=== PATIENT | female | born 1945 | race Caucasian/White ===

== ENCOUNTER 2016-09-06 17:40 | Emergency (ER) | payer MEDICARE, BC ==
[2016-09-06 18:14] VITALS: BP 153/97
--- NOTE | 2016-09-06 19:25 | ERNOTE ---
ENT HPI Date of Service: 09/06/16 Presenting Symptoms: eye pain Time Seen by Provider: 09/06/16 18:58 Source: patient, RN notes reviewed Exam Limitations: no limitations - Immun/Allergies/Home Medications Immunizations: IMMUNIZATION HX Immunizations Up to Date Yes History of Influenza Vaccine Yes Hx Pneumococcal Vaccination Yes Allergies/Adverse Reactions: Allergies Allergy/AdvReac Type Severity Reaction Status Date / Time No Known Allergies Allergy Verified 12/27/15 16:53 Home Medications: HOME MEDICATIONS Albuterol Sulfate [Ventolin Hfa] 1 - 2 inh IH Q4H PRN 01/16/13 [Last Taken Unknown] Amitriptyline HCl [Amitripytyline (Elavil)] 50 mg PO HS 01/16/13 [Last Taken Unknown] Atenolol [Tenormin] 50 mg PO DAILY 01/16/13 [Last Taken Unknown] Diclofenac Sodium [Diclofenac (Voltaren)] 50 mg PO BID 01/16/13 [Last Taken Unknown] Levothyroxine Sodium [Synthroid] 225 mcg PO DAILY 01/16/13 [Last Taken Unknown] Misoprostol [Cytotec] 200 mcg PO BID 01/16/13 [Last Taken Unknown] Zolpidem Tartrate [Ambien] 10 mg PO HS PRN 01/16/13 [Last Taken Unknown] traMADol HCL [Ultram] 50 mg PO BID 01/16/13 [Last Taken Unknown] - History of Present Illness Narrative: 71 y/o female brought to the ED by a relative for a sudden onset of right eye pain, blurred vision and subconjunctival bleeding that occurred about 2 hours ago. She was getting ready to go out and was putting on her wig at the time. She reports having a brief total vision loss in the right eye initially, but it has improved, although is still blurry. She has been seeing opthalmology at [facility] for a retina problem and possibly will be having surgery. She does not know the exact condition. Her vision is chronically poor in the right eye, but she states that this is worse than her normal. Date (Duration): 09/06/16 Time (Timing): 17:30 ENT Location: Present: eye (R) Prearrival Treatment: Present: no prearrival treatment Prior Treament: Denies: recently seen, similar symptoms before Review of Systems - Review of Systems Constitutional: Absent: recent illness, fever, chills EYE: Present: eye pain, blurred vision, vision changes. Absent: tearing ENT: Absent: nose congestion, sore throat Respiratory: Present: no symptoms reported Cardiology: Present: no symptoms reported Gastrointestinal/Abdominal: Present: no symptoms reported Genitourinary: Present: no symptoms reported Musculoskeletal: Present: no symptoms reported Skin: Absent: rash, lesions Neurological: Absent: headache, dizziness/light-headedness, weakness, numbness, tingling Endocrine: Present: no symptoms reported Hematologic/Lymphatic: Absent: easy bruising, easy bleeding Psych: Present: no symptoms reported - Patient's Past Medical History Patient History - Medical: Fibromyalgia, Hypothyroidism, Osteoarthritis Patient History - Cardiac/Respiratory: Asthma, Hypertension, Hyperlipidemia Patient History - Cancer: No Hx of Cancer Patient History - Surgical Procedures: Appendectomy, Cholecystectomy, Hysterectomy, Total Knee Replacement Patient History - Other: None - Social History Living Situations: alone Abuse History: No History of abuse Psych History: No pertinent hx Smoking Status: Never smoker Alcohol Use: none Drug Use: none - Immunizations Immunizations Up to Date: Yes Hx Pneumococcal Vaccination: Yes History of Influenza Vaccine: Yes Physical Exam - Physical Exam General Appearance: Present: wd/wn, alert, anxious Eye Exam: Normal inspection: left, PERRL: bilateral, EOMI: bilateral, Photophobia: right, Other: right - severe subconjunctival hemorrhage Respiratory: Present: no respiratory distress, no accessory muscle use Neurological Exam: Present: alert, oriented, normal mood/affect, no motor/ sensory deficits Skin Exam: Present: normal color, warm/dry ED Progress - Vital Signs Patient's Vital Signs:: I have reviewed the patient's vital signs. Vital Signs: Vital Signs 09/06/16 18:05 Temperature 36.8 C Pulse Rate 58 L Respiratory 18 Rate Blood Pressure 153/97 O2 Sat by Pulse 98 Oximetry - Progress/Reassessment Chief Complaint: Eye Injury/Trauma Progress:: Unchanged Plan - Plan Plan: Dr. Delatorre contacted regarding patient's symptoms and the uncertainty of what exactly her underlying eye condition is, He agreed that symptoms are likely d/t subconjunctival hemorrhage. Recommended artificial tears every 2 hours and to see him in the office tomorrow morning. Departure Clinical Impression: Subconjunctival hemorrhage of right eye - Departure Disposition: Home Follow Up Needed Condition: Stable Instructions: Subconjunctival Hemorrhage Additional Instructions: Use artificial tears (lubricating eye drops) every 2 hours Cold compresses as needed See Dr. Delatorre in his [place] office tomorrow morning at 9 Referrals: Donny Delatorre MD [Staff Physician] - 09/07/16 9:00 am
--- OUTSIDE RECORDS SUMMARY | 2016-09-06 19:26 | XMS REPORT | Continuity of Care Document ---
:1945 Author Organization [facility] ([facility]) Address [address] [place] [address] Phone [phone] Care Team Providers Name Role Phone Olamide Snyder Primary Care Provider [phone] Source Comments This disclosure is being made pursuant to the Care Everywhere program, applicable federal and state laws, and may not contain all informaitonavailable regarding this patient.[facility] ([facility]) Active Allergies and Adverse Reactions No Known Allergies Current Medications Prescription Sig. Disp. Refills Start Date End Date Status Calcium-Cholecalcife take 1 Tab by mouth Active rol, D3, (CALCIUM daily. 600 + D) 600-125 mg-unit Tab cholecalciferol take 1,000 Units by Active (VITAMIN D3) 1,000 mouth daily. unit Tab Chromium Picolinate take 1 Cap by mouth Active 200 mcg Cap daily. OMEGA-3 FATTY ACIDS take 1 Cap by mouth Active (OMEGA-3 PO) daily. MULTIVITAMINS,THERAP take 1 Tab by mouth Active EUTIC (THERAPEUTIC daily. MULTIVITAMIN PO) ALBUTEROL INH use 2 Puffs by Active inhalation as needed. amitriptyline Take 1 Tab by mouth 30 Tab 5 01/11/2010 Active (ELAVIL) 50 mg at bedtime as tablet needed for Sleep. Indications: Fibromyalgia traMADol (ULTRAM) 50 Take 1 Tab by mouth 60 Tab 5 01/11/2010 Active mg tablet 2 times daily as needed. Indications: Fibromyalgia zolpiDEM 10 mg Take 10 mg by mouth 2 05/28/2016 Active tablet at bedtime as needed. miSOPROStol 200 mcg Take 200 mcg by 1 05/28/2016 Active tablet mouth 2 times daily with meals. levothyroxine 150 take 1 tablet (150 1 07/03/2016 Active mcg tablet mcg) by oral route once daily for 90 days diclofenac 50 mg EC Take 50 mg by mouth 1 05/28/2016 Active tablet 2 times daily with meals. atenolol 50 mg Take 50 mg by mouth 1 05/28/2016 Active tablet daily. Ascorbic Acid 1,000 take 1 Tab by mouth 08/08/19 Discontinued mg Tab daily. 17 MTJXIJP-FBECNCCFU-PK take 1 Tab by mouth 08/08/19 Discontinued NC PO daily. 17 GLUCOSAMINE take 1 Tab by mouth 08/08/19 Discontinued HCL/CHONDR AHUJA A NA daily. 17 (GLUCOSAMINE-CHONDRO ITIN) 250-200 mg Tab levothyroxine take 100 mcg by 08/08/19 Discontinued (LEVOTHYROXINE) 100 mouth daily. 17 mcg tablet levothyroxine take 125 mcg by 08/08/19 Discontinued (LEVOTHYROXINE) 125 mouth daily. 17 mcg tablet VITAMIN B COMPLEX PO take 1 Cap by mouth 08/08/19 Discontinued daily. 17 Potassium 99 mg Tab take 1 Tab by mouth 08/08/19 Discontinued daily. 17 vitamin E 100 unit take 200 Units by 08/08/19 Discontinued cap mouth daily. 17 celecoxib (CELEBREX) Take 1 Cap by mouth 60 Cap 5 01/11/2010 08/08/19 Discontinued 100 mg capsule 2 times daily after 17 meals as needed. Indications: osteoarthritis and fibromyalgia Active Problems Problem Noted Date Epiretinal membrane (ERM) of right eye 08/07/2016 Carpal tunnel syndrome 03/19/2008 Pain in limb 03/19/2008 Unspecified hypothyroidism 04/24/2004 Most Recent Encounters Date Type Specialty Providers Description 08/08/2016 Office Visit Ophthalmology - Chief Comp: Patient Specialty Reported Reason For Visit 08/08/2016 Office Visit Ophthalmology - Obey Olson MD Dx: Epiretinal Specialty membrane (ERM) of right eye (Primary Dx) Immunizations Name Dates Previously Given Next Due Influenza, unspecified 05/04/2009,05/18/2008,05/06/2007,04/21/2006 Pneumococcal, unspecified 07/22/2002 Social History Tobacco Use Types Packs/Day Years Used Date Never Smoker Alcohol Use Drinks/Week oz/Week Comments No Last Filed Vital Signs Vital Sign Reading Time Taken Blood Pressure 147/87 01/11/2010 11:25 AM CDT Pulse 69 01/11/2010 11:25 AM CDT Temperature 36.8 C (98.2 F) 01/11/2010 11:25 AM CDT Respiratory Rate - - Height 1.77 m (5' 9.68") 03/12/2001 8:30 AM CDT Weight 106.1 kg (233 lb 14.5 oz) 01/11/2010 11:25 AM CDT Body Mass Index 33.87 01/11/2010 11:25 AM CDT Oxygen Saturation - - Plan of Care Date Type Specialty Providers Description 11/14/2016 Appointment Ophthalmology - Obey Olson MD Chief Comp: Patient Specialty [address] [place] [address] Visit [phone] (Fax) Health Maintenance Due Date Last Done Comments HCV Screening 1945 Hepatitis B Vaccine (1 of 3 1945 - Primary Series) Tdap Vaccine 1957 Lipid Disorder Screening 1964 Td Vaccine 1964 Mammogram 1986 Colonoscopy 08/26/1996 Zoster Vaccine 2006 Osteoporosis Screening (DXA 2011 Bone Density) Pneumococcal Vaccine (1 of 2 2011 - PCV13) Influenza Vaccine: Seasonal 02/20/2016 05/04/2009, Additional history exists (#1) 05/18/2008, 05/06/2007 Results from Last 3 Months OCT MACULA (08/08/2016 9:46 AM) Component Value Range EYE - OCT RIGHT CENTRAL MACULAR THICKNESS [phone] [facility] EYE - OCT LEFT CENTRAL MACULAR THICKNESS [phone] [facility] Narrative Spectralis ocular coherence tomography macula both eyes Right eye: taut epiretinal membrane with partial thickness lamellar hole and intraretinal cysts Left eye: moderate epiretinal membrane with disruption of the foveal architecture without intraretinal cysts
== END 2016-09-06 19:48 | disposition home or self-care (01) ==
LOC: ER 17:40
DX: H11.31 Conjunctival hemorrhage, right eye (principal); E03.9 Hypothyroidism, unspecified; M19.90 Unspecified osteoarthritis, unspecified site; I10 Essential (primary) hypertension

== ENCOUNTER 2017-07-17 14:44 | Emergency (ER) | payer MEDICARE, BC ==
[2017-07-17 15:41] LABS: Hemoglobin 11.8 gm/dL (12.5-16.0); Mean Corpuscular Hemoglobin 28.9 pg (27-31); Mean Corpuscular Hgb Conc 32.8 g/dl (32-36); Mean Platelet Volume 10.2 fl (6.0-9.5); Neutrophil # 2.5 K/mm3 (1.3-6.0); Platelet Count 243 K/mm3 (150-450); Red Blood Count 4.09 M/mm3 (4.2-5.4); White Blood Count 4.6 K/mm3 (4.0-10.5)
[2017-07-17 15:59] LABS: ALT 43 U/L (19-67); AST 25 U/L (0-48); Alkaline Phosphatase * 157 U/L (50-170); Anion Gap 10.5 mmol/L (6.8-13.8); BUN/Creatinine Ratio 13.3 (9.0-21.6); Bilirubin, Total 0.4 mg/dL (0.0-1.1); Blood Urea Nitrogen 13 mg/dL (3-23); Ca. Corrected For Albumin 9.8 mg/dL (8.4-10.2); Calcium * 10.1 mg/dL (7.9-10.9); Carbon Dioxide 30.1 mmol/L (24-32.6); Chloride 101 mmol/L (97-106); Glucose * 111 mg/dL (70-110); Potassium 4.6 mmol/L (3.4-4.6); Sodium 137 mmol/L (132-142); Total Protein 7.6 gm/dL (6.2-8.2)
[2017-07-17 16:09] LABS: Urine Bilirubin Negative (NEGATIVE); Urine Blood Negative /ul (NEGATIVE); Urine Ketone Negative (NEGATIVE); Urine Nitrite Negative (NEGATIVE); Urine Protein Negative (NEGATIVE); Urine Specific Gravity <=1.005 SP.GR. (1.005-1.010); Urine Urobilinogen Normal (NORMAL)
[2017-07-17 16:20] LABS: Urine Appearance Clear; Urine Bacteria None Seen; Urine Color Yellow; Urine RBC None Seen /hpf (0-5); Urine WBC None Seen /hpf (0-5)
[2017-07-17] MEDS ORDERED: KETOROLAC TROMETHAMINE 30 MG/ML VIAL IM ONE (16:20)
--- NOTE | 2017-07-17 16:26 | ERNOTE ---
Lower Extremity HPI - Narrative Date of Service: 07/17/17 - General Lower Extremities Pain: hip: right - sacroiliac mild disfunction Time Seen by Provider: 07/17/17 15:22 Source: patient Exam Limitations: physical impairment, other - difficulty walking due to pain - Immun/Allergies/Home Medications Immunizations: IMMUNIZATION HX Immunizations Up to Date Yes History of Influenza Vaccine Yes Hx Pneumococcal Vaccination Yes Allergies/Adverse Reactions: Allergies Allergy/AdvReac Type Severity Reaction Status Date / Time No Known Allergies Allergy Verified 07/17/17 14:48 Home Medications: HOME MEDICATIONS Albuterol Sulfate [Ventolin Hfa] 1 - 2 inh IH Q4H PRN 01/16/13 [Last Taken 09/26] Amitriptyline HCl [Amitripytyline (Elavil)] 50 mg PO HS 01/16/13 [Last Taken ] Atenolol [Tenormin] 50 mg PO DAILY 01/16/13 [Last Taken 10/10/16] Diclofenac Sodium [Diclofenac (Voltaren)] 50 mg PO BID 01/16/13 [Last Taken ] Levothyroxine Sodium [Synthroid] 200 mcg PO DAILY 01/16/13 [Last Taken 10/10/16] Misoprostol [Cytotec] 200 mcg PO BID 01/16/13 [Last Taken 10/10/16] Zolpidem Tartrate [Ambien] 10 mg PO HS PRN 01/16/13 [Last Taken 10/09/16] traMADol HCL [Ultram] 50 mg PO BID 01/16/13 [Last Taken 10/10/16] HYDROcodone/ACETAMINOPHEN [Hydrocodon-Acetaminophen 5-325] 1 each PO TID PRN [Last Taken Unknown] - History of Present Illness Narrative: Pain control has been a problems since she returned to work today. pain is worse when wt bearing on right hip Patient is on nsaid diclofenac, tramadol, and nortriptyline, and norco 5/325, ( but this makes her too tired and she is cutting back thus more pain levels 8 - 9 /10. Occurred: this afternoon, other - after full day of work. Location of Incident: home Reason for Fall: Reports: lost balance Loss of Consciousness: Reports: no loss of consciousness Modifying Factors - (Improves): Reports: cold therapy Modifying Factors - (Worsens): Reports: pain medication Associated Symptoms: Reports: weakness. Denies: dizzy/light headedness, headache, vomiting/diarrhea, bowel/bladder problems Other Injuries: Reports: back - pain Subsequent Symptoms: Reports: sensory loss - right hip Prior Treament: Reports: recently seen Review of Systems - Review of Systems Constitutional: Present: no symptoms reported EYE: Present: no symptoms reported ENT: Present: no symptoms reported Respiratory: Present: no symptoms reported Cardiology: Present: no symptoms reported Gastrointestinal/Abdominal: Present: no symptoms reported Musculoskeletal: Present: See HPI, back pain, joint pain - right hip Skin: Present: no symptoms reported Neurological: Present: numbness Endocrine: Present: no symptoms reported Hematologic/Lymphatic: Present: no symptoms reported All Other Systems: All systems neg except as marked - Narrative Narrative: all history, pmh, psh, sh, all medications, allergies have been reviewed. - Patient's Past Medical History Patient History - Medical: Fibromyalgia, Hypothyroidism, Osteoarthritis Patient History - Cardiac/Respiratory: Asthma, Hypertension, Hyperlipidemia Patient History - Cancer: No Hx of Cancer Patient History - Surgical Procedures: Appendectomy, Cholecystectomy, Hysterectomy, Total Knee Replacement Patient History - Other: None LMP (females 10-50): post men - Family History Mother Family History - Medical: Family History - Cancer: Throat Father Family History - Cardiac/Respiratory: Coronary Heart Disease Family History - Cancer: Colon - Social History Living Situations: home Abuse History: No History of abuse Psych History: No pertinent hx Smoking Status: Never smoker Alcohol Use: none Drug Use: none - Immunizations Immunizations Up to Date: Yes Hx Pneumococcal Vaccination: Yes History of Influenza Vaccine: Yes Physical Exam - Physical Exam General Appearance: Present: wd/wn, alert, moderate distress Head Exam: Present: normal inspection Eye Exam: Normal inspection: bilateral, PERRL: bilateral, EOMI: bilateral Ears, Nose, Throat: Present: normal ENT inspection Neck: Present: normal inspection Respiratory: Present: no respiratory distress, normal breath sounds Cardiovascular/Chest: Present: regular rate, rhythm, normal peripheral pulses Peripheral Pulses: N=norm/S=strong/W=weak/B=bound/A=absent: Carotid (R): Normal , Carotid (L): Normal, Radial (R): Normal, Radial (L): Normal Gastrointestinal/Abdominal: Present: normal bowel sounds, nontender, soft Rectal Exam: Present: deferred Back Exam: Present: decreased range of motion Extremity Exam: Present: normal inspection, normal range of motion, no edema Neurological Exam: Present: alert, oriented, normal mood/affect, no motor/ sensory deficits DTR: N=norm/NB=norm/brisk/A=abs/DD=dull/dimin/HC=hyperactive: Bicep (R): Normal , Bicep (L): Normal, Knee (R): Normal, Knee (L): Normal, Ankle (R): Normal, Ankle (L): Normal Skin Exam: Present: normal color Lymphatic Exam: Present: no adenopathy ED Progress - Vital Signs Vital Signs: Vital Signs 07/17/17 07/17/17 14:48 15:00 Temperature 36.3 C L 36.3 C L Pulse Rate 65 66 Respiratory 16 14 Rate Blood Pressure 174/104 149/67 O2 Sat by Pulse 98 98 Oximetry - Progress/Reassessment Chief Complaint: Hip Pain/Injury Plan - Plan Plan: Pain control has been a problems since she returned to work today. pain is worse when wt bearing on right hip. Departure Clinical Impression: Hip pain, right - Departure Disposition: Home self-care Condition: Good Print Language: Salvadorean Referrals: Olamide Snyder MD [Primary Care Provider] -
[2017-07-17] MEDS ORDERED: KETOROLAC TROMETHAMINE 30 MG/ML VIAL ONE (16:40)
[2017-07-17 22:48] VITALS: BP 145/67
== END 2017-07-17 22:47 | disposition home or self-care (01) ==
LOC: ER 14:44
DX: M25.551 Pain in right hip (principal); E03.9 Hypothyroidism, unspecified; I10 Essential (primary) hypertension; J45.909 Unspecified asthma, uncomplicated; M19.90 Unspecified osteoarthritis, unspecified site; M79.7 Fibromyalgia

== ENCOUNTER 2019-03-30 08:04 | Inpatient (IN) ==
[~2019-03-30 08:04] MED LIST: MORPHINE SULFATE 15 MG TABLET.SA PO PRN; TRANEXAMIC ACID 1,000 MG in NORMAL SALINE 100 ML IV PRN; ceFAZolin SODIUM 1 GM VIAL IV PRN
[2019-03-30] MEDS: RINGER'S SOLUTION,LACTATED 1,000 ML IV PRN ×2 (09:09→12:10)
--- NOTE | 2019-03-30 09:48 | ANES ---
Anesthesia Pre Procedure Eval Vitals/Labs: Last Vital Signs Temp 37.0 C 03/30/19 08:38 Pulse 67 03/30/19 08:38 Resp 16 03/30/19 08:38 BP 114/50 03/30/19 08:38 Pulse Ox 96 03/30/19 08:38 HOME MEDICATIONS albuterol sulfate HFA 90 mcg/actuation aerosol inhaler 1 - 2 inh INHALATION Q4H PRN #8.5 g 06/20/18 [Last Taken 02/22/19] Lactobacillus acidophilus and rhamnosus 15 billion cell capsule 1 cap PO DAILY cap 07/17/18 [Last Taken 02/22/19] amitriptyline 50 mg tablet 50 mg PO HS #90 tab 10/10/18 [Last Taken 02/22/19] clotrimazole-betamethasone 1 %-0.05 % topical cream 1 applic TP BID PRN #45 g 02/16/19 [Last Taken Unknown] levothyroxine 150 mcg tablet 150 mcg PO DAILY #30 tab 02/18/19 [Last Taken 02/22/19] Gabapentin 300 mg PO BID 02/23/19 [Last Taken 03/10/19] Iron,Carb/Vit C/Vit B12/Folic [Iron 100 Plus Tablet] 65 mg PO DAILY 02/23/19 [Last Taken 02/22/19] Atenolol [Tenormin] 1 tab PO DAILY 03/26/19 [Last Taken Unknown] Diclofenac Sodium [Voltaren] 1 tab PO BID 03/26/19 [Last Taken 03/23/19] Misoprostol 1 tab PO BID 03/26/19 [Last Taken Unknown] traMADol HCL [Tramadol HCl] 1 - 2 tab PO Q12H PRN 03/26/19 [Last Taken Unknown] Ferrous Sulfate [Iron] 325 mg PO DAILY 03/30/19 [Last Taken Unknown] Allergies/Adverse Reactions: Allergies Allergy/AdvReac Type Severity Reaction Status Date / Time banana Allergy Mild swelling Verified 03/30/19 08:51 of lips, hives - Planned Procedure Planned Procedure: Right Reverse Total Shoulder Arthroplasty Medication List Reviewed:: Yes Allergies Verified: Yes Medical History (Updated 03/12/19 @ 11:10 by Renee Waller LPN) Hyperlipidemia (Chronic) Onset Date: Unknown Hypertension (Chronic) Onset Date: Unknown Gout (Resolved) Onset Date: ~2014 GERD (gastroesophageal reflux disease) (Chronic) Onset Date: ~2012 Fibromyalgia (Chronic) Onset Date: Unknown Asthma (Chronic) Onset Date: Unknown Arthritis (Chronic) Onset Date: Unknown Anemia (Chronic) Onset Date: Unknown DVT (deep venous thrombosis) Onset Date: Unknown H/O cataract Onset Date: Unknown Right shoulder pain Onset Date: ~08/2018 Wears glasses Bacterial overgrowth syndrome Onset Date: ~2009 MRSA (methicillin resistant Staphylococcus aureus) Onset Date: ~2007 left ankle Surgical History (Updated 03/12/19 @ 11:10 by Renee Waller LPN) H/O cataract extraction Onset Date: ~02/2019 both H/O ventral hernia repair Onset Date: ~01/2013 Dr Kohli-3 cm right lower quad ventral hernia with small ventralex patch History of appendectomy Onset Date: ~1963 History of colonoscopy Onset Date: ~05/2010-Dr Cyr-normal 2009-Dr Stewart-tubular adenoma.-cecum. History of esophagogastroduodenoscopy (EGD) Onset Date: ~01/2013-Dr Bone-esphagitis, duodenal nodule. 2012-Dr Kohli-clotest negative. History of laparoscopic cholecystectomy Onset Date: ~01/2013 History of left knee replacement Onset Date: ~07/2011 Dr Washburn History of revision of total replacement of right knee joint Onset Date: ~05/2011 Dr Washburn History of right knee joint replacement Onset Date: ~04/2008 Right rotator cuff tear arthropathy Onset Date: ~08/2000 Dr rCuz S/P WALE-BSO (total abdominal hysterectomy and bilateral salpingo-oophorectomy) Onset Date: Unknown left knee repair Onset Date: ~2001 Dr Cruz-meniscus tear lysis of adhesion Onset Date: ~01/2013 Dr Kohli-liver adhesions Family History (Updated 02/23/19 @ 10:59 by Kala Faustin RN) Brother Alive and well Father , age 58 Colon cancer Mother , age 74 Colon cancer CHF (congestive heart failure) Heart disease Brother Cancer renal Son Diabetes Son Alive and well - Family Anesthesia History Family History:: no untoward family reactions to anesthesia, no familial bleeding tendencies, no family history of clotting disorders, no family history of premature - Airway/Neck/Teeth Within Normal Limits:: Yes Teeth Condition: intact Neck Exam: full range of motion Mallampatti Score: 2 Thyromental (T-M) distance: > 6 cm Mandibulo Hyoid distance: > 3 cm - Respiratory Respiratory History: asthma Smoking Status: Never smoker Sleep Apnea currently treated: No Sleep Apnea by current assessment: No - Cardiovascular Cardiac History: CHF - "begining of", hypertension, hyperlipidemia Tolerate Activity: Fair Heart Sounds: S1 & S2, Regular - Anesthesia Assessment and Plan ASA Class: PS, III Anesthesia Type Plan: General LMA, Block - interscalene block for post op pain relief
[2019-03-30] MEDS ORDERED: diphenhydrAMINE HCL 50 MG/ML VIAL IV PRN (12:19)
[2019-03-30] MEDS ORDERED: MAGNESIUM HYDROXIDE 30 ML UDC PO PRN (12:19)
[2019-03-30] MEDS ORDERED: MAG HYDROX/ALUMINUM HYD/SIMETH 30 ML UDC PO PRN (12:19)
[2019-03-30] MEDS ORDERED: ACETAMINOPHEN 500 MG TABLET PO PRN (12:19)
[2019-03-30] MEDS ORDERED: ZOLPIDEM TARTRATE 5 MG TABLET PO PRN (12:19)
[2019-03-30] MEDS ORDERED: ONDANSETRON HCL/PF 2 MG/ML VIAL IV PRN (12:19)
[2019-03-30] MEDS ORDERED: oxyCODONE HCL/ACETAMINOPHEN 1 TAB TABLET PO PRN (12:19)
[2019-03-30] MEDS ORDERED: MORPHINE SULFATE 2 MG/ML DISP.SYRIN IV PRN (12:19)
[2019-03-30] MEDS ORDERED: CLOTRIMAZOLE/BETAMET DIPROP 15 APPL TUBE TP PRN (12:21)
[2019-03-30] MEDS ORDERED: ALBUTEROL SULFATE 2.5 MG/0.5 ML VIAL.NEB IH PRN (12:21)
--- NOTE | 2019-03-30 12:27 | OR ---
Operative Report - Dictated Report Narrative: DATE OF PROCEDURE: 03/30/2019 PHYSICIAN: Jarek Washburn MD SPEECH AND LANGUAGE CLINICIAN: Celio Beltran PA-C (provided and essential set of skilled, educated hands that assisted with transfer, positioning, prepping, draping, manipulation, retraction, placement of implants, irrigation, closure wounds, and application of dressings all which cannot be performed by the available surgical crew) PREOPERATIVE DIAGNOSIS: Right rotator cuff deficient shoulder arthrosis. POSTOPERATIVE DIAGNOSIS: Right rotator cuff deficient shoulder arthrosis. OPERATIONS AND PROCEDURES: Right reverse total shoulder arthroplasty. ANESTHESIA: General plus regional. COMPLICATIONS: None. DRAINS: 7 Stateless TLS SPECIMENS: Bone - for disposal per patient request ESTIMATED BLOOD LOSS: 150 mL. RETAINED IMPLANTS: 1. DePuy Delta Xtend cementless metaglene. 2. Delta Xtend glenosphere, 38 mm standard. 3. Delta Xtend size 10 modular humeral SAL-coated cementless stem. 4. Size 1 right modular eccentric epiphysis SAL-coated cementless. 5. Delta Xtend standard polyethylene size 38 plus 6 mm. 6. Metaglene locking screws, 36 mm and 42 mm in length. 7. Nonlocking metaglene screws, 18 mm x 2 . INDICATIONS FOR PROCEDURE: Mrs. Bain is a 73-year-old female with significant past history of rotator cuff tears and deficiency. She had treated these conservatively and had an irreparable rotator cuff with some progression of arthrosis of the shoulder and difficulty with activities of daily living in pain. She was seen in clinic and had failed conservative measures. She wished to proceed with surgical treatment. The risks, benefits, and alternatives were discussed in clinic, including the risk of , blood clots, bleeding, infection, nerve/tendon/blood vessel injury, malposition of components, failure of components, wear or limited range of motion, stiffness, and need for additional procedures, and she wished to proceed. Consent was obtained here in the clinic. DESCRIPTION OF PROCEDURE: After marking the correct extremity in the preoperative holding area, the patient was taken to the operating room. A timeout was performed. IV antibiotics consisting of Ancef were administered prior to procedure. The regional followed by general anesthetic was induced by the nurse cafeteria operator at my request. She was then transitioned to beach chair position with all bony prominences well padded. The head in neutral, legs with SCDs and supported,and the nonoperative arm supported. The surgical arm was prescrubbed with alcohol then prepped and draped in the standard sterile fashion and the skin was covered with ioban. A deltopectoral incision was made and blunt dissection was carried down through the skin. The cephalic vein was identified, protected, and retracted. We then went through the deltopectoral interval, exposing the proximal humerus. It was noted that there was no rotator cuff, supraspinatus and infraspinatus tendon, or teres minor tendon. The subscapularis was intact as well as the biceps. A tag suture was placed in subscapularis tendon as well as the anterior capsule, and this was elevated off the anterior humerus passing along the bicipital groove and into the rotator cuff interval, exposing the proximal humerus. This was then freed off the proximal humerus. A biceps tenotomy was performed and the shoulder was dislocated. The humeral head was noted to show signs of arthrosis. Next, an entry drill was placed down the humerus centered on the longitudinal axis entering off just onto the articular surface on the humeral head. Next were serial reamers up to the size 10 were utilized, which gave good overall cortical contact. Next, a proximal humeral head cut was performed. We made the cut at approximately 10 degrees of retroversion. This appeared to resect an appropriate amount of humeral head. This was then pinned into place and an oscillating saw was utilized to cut this humeral head, protecting the surrounding soft tissues. We then placed a cap over the proximal humerus and turned our attention to the glenoid. The soft tissues were then elevated off the humeral neck as well as circumferentially around the glenoid. The glenoid was exposed. The remaining biceps tendon and labrum were resected. Using tractors, the glenoid was exposed and a guidewire was placed just posterior and inferior to the center of the glenoid. This was made so that it directed slightly superiorly but otherwise perpendicular to the glenoid on the axillary plane. Protecting the surrounding soft tissues, a reamer was utilized in order to remove the remaining cartilage. A hand inspector was utilized in order to resect the superior cartilage, and this resulted in a good overall appearance of the glenoid. The center drill lug hole was drilled and had good circumferential bone. The metaglene was then impacted into place and oriented for placement of screws along the mid plane in the superior and inferior quadrants of the glenoid as well as anterior to posterior screws. These were drilled and had appropriate overall length of screws on the superior and inferior metaglene screws. Good purchase was obtained with a 36 mm screw superiorly and 42 mm screw inferiorly. The anterior and posterior screws were drilled and 18 mm anterior and 18mm posterior nonlocking screws were placed. We then locked the superior and inferior screws into place. This gave good overall compression down to the glenoid with flat overall appearance and an appropriate alignment. We returned our attention to the proximal humerus. The proximal humeral reaming guide was placed for an eccentric reamer. This was utilized in order to prepare the proximal humerus. The trial stem was assembled on the back table and impacted into place. After placing the trial stem, we then returned to the metaglene. The glenosphere was then secured to the metaglene, impacted, and tightened ensuring that this was seated completely. We then returned to the humeral component and placed the trials of polyethylene inserts and found that the 6mm gave good overall longitudinal traction with no gapping. The shoulder was able to reach 140 degrees of forward flexion and 140 degrees of abduction, external rotation was to 90 degrees and with fulcrum and armpit were unable to hinge the joint out of place, and there was no essentially no gapping of the polyethylene off the humeral head nor any signs of impingement on the glenoid neck. We felt that these were the appropriately placed and sized implants. We then dislocated the shoulder, removed the trial implants, thoroughly irrigated the humerus, impacted the final implants into place in the prior determined re troversion. The trial polyethylene was utilized again and was noted that the actual stem and the trial stem were equal in tension, and thus the final polyethylene was impacted into place. The shoulder was reduced, again noted to be stable, was then thoroughly irrigated. The subscapularis and biceps tendon were secured to the surrounding soft tissues using a #1 Ethibond suture. The deltopectoral interval was closed with #0 Vicryl. A 7 Stateless TLS drain was placed exiting proximally. The deep tissues were then closed with #0 Vicryl, subcutaneous with 3-0 Monocryl, and the skin with niranjan. Xeroform, 4 x 4, ABD, soft roll, and full arm Andi was applied. The patient was placed in a shoulder sling, awoken, and transferred to postanesthesia care in stable condition. All sponge, needle, and instrument counts were correct prior to closing the wounds. We will obtain postoperative films and be admitted to the floor for postoperative pain control, IV antibiotics, and starting of physical therapy. I anticipate a one to two night hospital stay.
--- NOTE | 2019-03-30 12:45 | ANES ---
Post Anesthesia Discharge - Transfer of Care Transfer of Care handoff given to nurse: Yes - Discharge from PACU Discharge from PACU when meets criteria: Yes - Anesthesia Post Op Note Anesthesia Post Op Note: Pt having small runs of increased heart rate and irregular rhythm. goes from 60-75for 5 beats or so then bck down to 60bpm. No PVCs, PACs, P waves are intact. At this time all VS stable. BP not labile.
--- NOTE | 2019-03-30 13:27 | ANES ---
Post Anesthesia Assessment - Vital Signs Vitals: Last Vital Signs Temp 36.5 C 03/30/19 13:00 Pulse 63 03/30/19 13:00 Resp 12 03/30/19 13:00 BP 107/48 03/30/19 13:00 Pulse Ox 99 03/30/19 13:00 Airway Patency: Normal - Mental Status Level Of Consciousness: Awake, Alert, Appropriate - Pain Level Pain Score: 0 - N/V Assessment Nausea/Vomiting Presence: None
[2019-03-30] MEDS: ceFAZolin SODIUM 1 GM in DEXTROSE 5 % IN WATER 100 ML IV SCH ×4 (13:29→20:27)
[2019-03-30] MEDS: KETOROLAC TROMETHAMINE 15 MG/ML VIAL IV SCH ×2 (13:29→17:52)
[2019-03-30] MEDS: DEXTROSE 5%-LACTATED RINGERS 1,000 ML IV PRN ×2 (13:30→22:25)
--- NOTE | 2019-03-30 14:42 | ANES ---
Anesthesia Procedure Note Procedure Note: ANESTHESIA PROCEDURE NOTE Date of Procedure: 03/30/2019 Time of procedure: 10 AM. Performed by: DALILA Buchanan CRNA, MSN Flat Bed Operator: Oliva Bain RN. Preprocedure diagnosis: Right shoulder surgery pain. Post procedure diagnosis: Same. Procedure: Right interscalene nerve block. Indications: Post right shoulder surgery pain relief. Findings: See below. Details of the procedure: The patient was brought to OR #4 and placed in semi- Fowlers position. The patient was prepped with chlorhexidine and using ultrasound guidance the right interscalene segment of the brachial plexus was identified and lidocaine 1% was infiltrated to the skin of the intended injection site. Under ultrasound guidance the interscalene nerve bundles were approached with visualization of a 2inch stimulator needle visualized unde ultrasound until a shoulder/arm response was identified on nerve stimulator. Once the stimulator response was effective at less than 0.5 mV and greater than 0.3 mV the bracheal plexus nerves at this level were surrounded with 30 mL bupivacaine 0.25% with 1-200,000 epinephrine. Please see radiology/ultrasound report for details and retained images of the procedure. EBL: 0 Fluids: N/A. Specimen: N/A. Post procedure condition: The patient tolerated the procedure well. No complications were noted. Thank you for this consultation. Donny Bautista CRNA, DALILA, MSN
[2019-03-30] MEDS: MORPHINE SULFATE 15 MG TABLET.SA PO SCH (20:27)
[2019-03-30] MEDS: MISOPROSTOL 200 MCG TABLET PO SCH (20:28)
[2019-03-30] MEDS: GABAPENTIN 300 MG CAPSULE PO SCH (20:28)
[2019-03-30] MEDS: ASPIRIN 325 MG TABLET.DR PO SCH (20:28)
[2019-03-30] MEDS ORDERED: SENNOSIDES/DOCUSATE SODIUM 1 TAB TABLET PO SCH (21:00)
[2019-03-30] MEDS ORDERED: AMITRIPTYLINE HCL 50 MG TABLET PO SCH (21:00)
[2019-03-31] MEDS: KETOROLAC TROMETHAMINE 15 MG/ML VIAL IV SCH ×4 (00:30→18:02)
[2019-03-31] MEDS: ceFAZolin SODIUM 1 GM in DEXTROSE 5 % IN WATER 100 ML IV SCH ×2 (02:12)
[2019-03-31 05:50] LABS: Hematocrit 29.2 % (37.0-47.0); Hemoglobin 9.4 gm/dL (12.5-16.0); Mean Cell Volume 91.8 fl (78-100); Mean Corpuscular Hemoglobin 29.6 pg (27-31); Mean Corpuscular Hgb Conc 32.2 g/dl (32-36); Mean Platelet Volume 11.4 fl (8-12.5); Platelet Count 187 K/mm3 (150-450); Red Blood Count 3.18 M/mm3 (4.2-5.4); Red Cell Distribution Width 14.5 % (11.5-14.0); White Blood Count 9.8 K/mm3 (4.0-10.5)
[2019-03-31 05:56] LABS: Anion Gap 12.1 mmol/L (6.8-13.8); BUN/Creatinine Ratio 10.6 (9.0-21.6); Calcium * 8.9 mg/dL (7.9-10.9); Carbon Dioxide 27.2 mmol/L (24-32.6); Estimated Creat Clear 64.9; Potassium 4.3 mmol/L (3.4-4.6)
[2019-03-31] MEDS ORDERED: LEVOTHYROXINE SODIUM 150 MCG TABLET PO SCH (07:00)
[2019-03-31] MEDS ORDERED: HYDROcodone/ACETAMINOPHEN 1 EACH TABLET PO PRN (08:10)
[2019-03-31] MEDS: MISOPROSTOL 200 MCG TABLET PO SCH (08:49)
[2019-03-31] MEDS: ASPIRIN 325 MG TABLET.DR PO SCH (08:49)
[2019-03-31] MEDS: GABAPENTIN 300 MG CAPSULE PO SCH (08:49)
[2019-03-31] MEDS: MORPHINE SULFATE 15 MG TABLET.SA PO SCH (08:54)
[2019-03-31] MEDS ORDERED: ATENOLOL 50 MG TABLET PO SCH (09:00)
[2019-03-31] MEDS ORDERED: FERROUS SULFATE 325 MG TABLET PO SCH (09:00)
[2019-03-31] MEDS ORDERED: LACTOBACILLUS ACIDOPHILUS 1 EACH CAPSULE PO SCH (09:00)
[2019-03-31] MEDS ORDERED: FE PS CMPLX/CYANOCOBALAMIN/FA 1 CAP CAPSULE PO SCH (09:00)
--- NOTE | 2019-03-31 13:01 | DS ---
(1) Status post reverse total arthroplasty of right shoulder Problem: Acute (2) Acute blood loss anemia Problem: Acute (3) Rotator cuff arthropathy Problem: Chronic Qualifiers: (4) Hyperlipidemia Problem: Chronic (5) Hypertension Problem: Chronic Qualifiers: (6) GERD (gastroesophageal reflux disease) Problem: Chronic (7) Fibromyalgia Problem: Chronic Description of Stay: Mrs. Bain was admitted to the floor after undergoing reverse right total shoulder arthroplasty. Tolerated this well. Was admitted to the floor postoperatively for 24 hours of IV antibiotics, pain control, medical comanagement, and occupational and physical therapy. OT and PT were consulted to assist with activities of daily living and ambulation. Was made weightbearing as tolerated with range of motion as tolerated. Pain was initially controlled with IV regimen. This was transitioned to oral once tolerating a by mouth intake. Was resumed on home diet and medications. Had a Haas catheter inserted and the operating room which was discontinued on postoperative day 1. A drain was placed intraoperatively into the knee which was discontinued on postoperative day 1. Lovenox SCD and LEXUS hose were utilized for DVT prophylaxis. Vital signs remained stable to the hospital course. Serial labs were obtained which showed a final hemoglobin of 9.4 grams. BMP was reviewed and was stable. Physical examination throughout the hospital course showed an extremity that had sensation that was intact to light touch, palpable pulses, a benign wound, motor intact to the toes, ankle, and knee. Once an oral pain regimen was tolerated and physical therapy goals were met, it was felt that they were stable for discharge to home. Instructions: Patient is discharged with referral to [facility]. Mrs. Bain is confined to the house due to undergoing right reverse total shoulder arthroplasty. The need for long term therapy is for wound checks, bath aide entities and assistance with activities of daily living. She will need home therapy for exercises and range of motion. The need for home health care skilled services is directly related to time spent [id number] with Mrs. Bain. Keep wound clean and dry and covered with dry dressing. If you note any drainage or for comfort you can cover with dry gauze and tape. Change every 2-3 days as needed. Continue with physical therapy. Resume home diet. Report any fever over 101.5 Fahrenheit, uncontrolled pain, increased drainage, foul odor of drainage, new or increased calf pain or shortness of breath, or any other significant complaints. Continue with LEXUS hose on the operative extremity until instructed otherwise. No driving until instructed otherwise. Follow up in approximately 10-14 days. Procedures Performed: see notes below List Procedures: Right reverse total shoulder arthroplasty Results and Findings: Lab Pending Results 03/31/19 05:20: WBC 9.8, RBC 3.18 L, Hgb 9.4 L, Hct 29.2 L, MCV 91.8, MCH 29.6, MCHC 32.2, RDW 14.5 H, Plt Count 187, MPV 11.4 03/31/19 05:20: Sodium 140, Plasma Sodium 141, Potassium 4.3, Chloride 105, Carbon Dioxide 27.2, Anion Gap 12.1, BUN 9, Creatinine 0.85, Est GFR (Non-Af Amer) 70, BUN/Creatinine Ratio 10.6, Random Glucose 165 H, Calcium 8.9 Discharge Location: Home Disposition: Home Health Service Home Health Agency: [facility] Condition: Good Discharge Activity: Activity as tolerated, Other - Right upper extremity in immobilizer, out for therapy and home exercises Discharge Diet: Low salt, Low fat/chol Referrals: Olamide Snyder MD [Primary Care Provider] - Additional Patient Instructions (free text): [facility] to follow at home for nursing, bath aide and Physical therapy, Follow up [facility] Dr Washburn office on SaturdayApril 14 at 9:30am. Prescriptions (Any new or edited meds): Morphine Sulfate [Ms Contin] 15 mg PO Q12H #20 tablet.sa HYDROcodone/ACETAMINOPHEN [Guy 5-325] 2 ea PO Q4H PRN #60 tab PRN Reason: Pain Sennosides/Docusate Sodium [Senokot-S] 2 tab PO HS #30 tab Complete Home Medications List: Complete Home Medication List: albuterol sulfate HFA 90 mcg/actuation aerosol inhaler 1 - 2 inh INHALATION Q4H PRN #8.5 g 06/20/18 Lactobacillus acidophilus and rhamnosus 15 billion cell capsule 1 cap PO DAILY cap 07/17/18 amitriptyline 50 mg tablet 50 mg PO HS #90 tab 10/10/18 clotrimazole-betamethasone 1 %-0.05 % topical cream 1 applic TP BID PRN #45 g 02/16/19 levothyroxine 150 mcg tablet 150 mcg PO DAILY #30 tab 02/18/19 Gabapentin 300 mg PO BID 02/23/19 Iron,Carb/Vit C/Vit B12/Folic [Iron 100 Plus Tablet] 65 mg PO DAILY 02/23/19 Atenolol [Tenormin] 1 tab PO DAILY 03/26/19 Diclofenac Sodium [Voltaren] 1 tab PO BID 03/26/19 Misoprostol 1 tab PO BID 03/26/19 traMADol HCL [Tramadol HCl] 1 - 2 tab PO Q12H PRN 03/26/19 Ferrous Sulfate [Iron] 325 mg PO DAILY 03/30/19 Aspirin [Aspirin Enteric Coated] 325 mg PO BID tablet. 03/31/19 HYDROcodone/ACETAMINOPHEN [Guy 5-325] 2 ea PO Q4H PRN #60 tab 03/31/19 Morphine Sulfate [Ms Contin] 15 mg PO Q12H #20 tablet.sa 03/31/19 Sennosides/Docusate Sodium [Senokot-S] 2 tab PO HS #30 tab 03/31/19 Amb Orders for Discharge: PT Evaluation and Treatment* Facility: [facility], Location: Rehabilitation Services
[2019-03-31 21:05] VITALS: BP 145/74
== END 2019-03-31 19:00 | disposition home health service (06) | DRG 483 ==
LOC: MS 08:04
PROVIDERS: ADMIT Orthopaedic Surgery; ATTEND Orthopaedic Surgery
CPT/HCPCS: 36415; 73030; 80048; 85027; 97110; 97116; 97161; 97165